=== PATIENT | male | born 1985 | race Caucasian/White ===

== ENCOUNTER 2023-09-05 17:19 | Emergency (ER) | payer OTHER, SELFPAY ==
--- NOTE | ~2023-09-05 | XR_ITS ---
EXAMINATION: XR wrist LT min 3V DATE: 09/05/2023 17:48 INDICATION: Left thumb injury and pain. TECHNIQUE: 4 views of left wrist were obtained. COMPARISON: None. FINDINGS: Bone alignment is normal. No fracture. Joint spaces are normal. IMPRESSION: 1. Normal left wrist. Reviewed, dictated and finalized at location E. IMPRESSION: 1. Normal left wrist.
[2023-09-05 17:33] VITALS: BP 140/102; PULSE 105; RESP 16; TEMP 37.5; O2SAT 98
[2023-09-05 17:34] VITALS: BP 140/102; PULSE 105; RESP 16; TEMP 37.5; O2SAT 98
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
== END 2023-09-05 18:10 | disposition home or self-care (01) ==
PROVIDERS: Emergency Provider Nurse Practitioner Family; PCP Nurse Practitioner
DX: S63.502A Unspecified sprain of left wrist, initial encounter (principal); Z79.899 Other long term (current) drug therapy; V89.2XXA Person injured in unspecified motor-vehicle accident, traffic, initial encounter
CPT/HCPCS: 73110; 99213; G0463

== ENCOUNTER 2023-09-27 11:48 | Emergency (ER) | payer OTHER, MEDICARE, MEDICAID, SELFPAY ==
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
[2023-09-27 12:02] VITALS: BP 140/100; PULSE 99; RESP 16; TEMP 36.6; O2SAT 99
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
[2023-09-27] MEDS: IBUPROFEN 600 MG TABLET PO (13:56)
== END 2023-09-27 14:00 | disposition home or self-care (01) ==
PROVIDERS: Emergency Provider Emergency Medicine; PCP Nurse Practitioner
DX: S52.515A Nondisplaced fracture of left radial styloid process, initial encounter for closed fracture (principal); V49.50XA Passenger injured in collision with unspecified motor vehicles in traffic accident, initial encounter
CPT/HCPCS: 29125; 73110; 99284; A9270

== ENCOUNTER 2023-11-18 12:30 | Outpatient (RCR) | payer MEDICARE, SELFPAY ==
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
--- NOTE | 2023-11-08 13:21 | OPREHPOC ---
Outpatient Therapy Plan of Care This is a Multidisciplinary Plan of Care that may contain components documented by all disciplines (PT, OT, and ST.) OT Problem 1 OT Problem #1 Knowledge Deficit OT Goal 1 Goal 1. Patient to be independent with instructed materials. Target Visit 8 OT Problem 2 OT Problem #2 Pain OT Goal 1 Goal 1. Patient to be independent with non-medication pain mgmt: - ROM - heat/ice Target Visit 8 OT Problem 3 OT Problem #3 Impaired Range of Motion OT Goal 1 Goal 1. Patient to increase active ROM of the left UE: - supination to 75 - wrist RD to 15 Target Visit 8 OT Problem 4 OT Problem #4 Impaired Strength OT Goal 1 Goal 1. Patient to be able to complete forearm and wrist strengthening with 2 lb. free weight x20 reps. Target Visit 8
--- NOTE | 2023-11-28 08:54 | PCOTNOTE ---
Late note for appointment yesterday, 11/27: Patient did not show up for scheduled appointment this date. Did not answer when called.
--- NOTE | 2023-12-04 13:00 | OTOPDC ---
Assessment and note entered by Harish Flores, ADELFO/Jenn, CHT Discharge Notification 12/04/23 OT Clinical Summary Patient referred to OT with dx of radial styloid fx. He attended 3 appointments and no showed the last 3 appointments. Discharging today due to poor attendance. We were able to contact him today and he reports his wrist feels fine and doesn't see the need to return for more therapy.
== END 2023-12-04 14:27 | disposition home or self-care (01) ==
LOC: ANHOT 12:30
PROVIDERS: PCP Nurse Practitioner; Visit Provider Orthopaedic Surgery
DX: S52.513D Displaced fracture of unspecified radial styloid process, subsequent encounter for closed fracture with routine healing (principal)
CPT/HCPCS: 97018; 97110; 97140; 97165; 99199

== ENCOUNTER 2024-04-15 09:38 | Emergency (ER) | payer MEDICARE, SELFPAY ==
[2024-04-15 09:42] VITALS: BP 150/90; PULSE 100; RESP 18; O2SAT 100
[2024-04-15 09:52] VITALS: TEMP 36.7
[2024-04-15] MEDS: LORazepam (*CRX) 1 MG TABLET PO (11:15)
--- NOTE | 2024-04-15 11:15 | ED.ANXIETY ---
HPI - Anxiety General Chief Complaint: Anxiety Stated Complaint: difficulty sleeping, panic attacks Time Seen by Provider: 04/15/24 10:20 History of Present Illness HPI narrative: 31-year-old male present to the emergency department for evaluation of increased anxiety. Patient reports that his mother recently on 03/24. Patient states he initially thought he was tolerating the passing of his mother but reports over the last few days he has had increased anxiety and decreased ability to sleep. Patient denies any suicidal homicidal ideation. Patient denies any thoughts of self-harm. Patient denies any alcohol intake and denies any THC intake. Patient declined any medical workup at this time but does prefer some medications to help with his anxiety. Patient was tearful during the examination. Related Data Home Medications Medication Instructions Recorded Confirmed buprenorphine 4 mg-naloxone 1 mg 1 film buccal BID 09/19/23 11/06/23 sublingual film (Suboxone) buspirone 7.5 mg tablet 7.5 mg PO BID 09/19/23 11/06/23 clindamycin phosphate 1 % topical 1 applic topical BID 09/19/23 11/06/23 solution clonazepam 0.5 mg tablet 0.5 - 1 mg PO BID PRN 09/19/23 11/06/23 hydroxyzine pamoate 50 mg capsule 50 - 100 mg PO QHS PRN 09/19/23 11/06/23 (Vistaril) olanzapine 5 mg tablet 5 mg PO QHS PRN 09/19/23 11/06/23 oxcarbazepine 300 mg tablet 300 mg PO BID 09/19/23 11/06/23 (Trileptal) phentermine 37.5 mg capsule 37.5 mg PO DAILY 09/19/23 11/06/23 pregabalin 150 mg capsule 150 mg PO QID 09/19/23 11/06/23 quetiapine 150 mg tablet,extended 150 mg PO DAILY 09/19/23 11/06/23 release 24 hr quetiapine 400 mg tablet 400 mg PO QHS 09/19/23 11/06/23 sildenafil 50 mg tablet 50 mg PO DAILY PRN 09/19/23 11/06/23 testosterone cypionate 200 mg/mL 200 mg IM WEEKLY 09/19/23 11/06/23 intramuscular oil vilazodone 40 mg tablet 40 mg PO DAILY 09/19/23 11/06/23 Allergies Allergy/AdvReac Type Severity Reaction Status Date / Time No Known Drug Allergies Allergy Unknown Unknown Verified 04/15/24 09:46 Review of Systems Review of Systems: All systems reviewed & are unremarkable except as noted in HPI and below PMFSH Past Medical History Medical History Anxiety Depression Opioid use disorder Substance abuse Family History Family History Father H/O gastric bypass Mother Schizophrenia Sibling No problems noted. Social History Social History Smoking status: Never smoker Alcohol intake: never Substance use: former Substance use type: does not use Last use: 4 years clean Occupation/Education: other Additional occupation/education comments: disabled Gender identity (if verbalized by the patient): Male Exam Narrative: APPEARANCE: Well appearing, no pain, no distress, well-nourished. HEAD: normocephalic, atraumatic. EYES: PERRLA/EOMI, conjunctivae clear. NOSE: Normal no drainage EARS:TMS clear with good light reflex. THROAT: Pharynx clear, no exudate. NECK: Supple. No adenopathy, no masses. RESPIRATORY: Airway patent, respirations nonlabored. Clear to auscultation bilaterally, no rales, rhonchi, wheezing. CARDIOVASCULAR: Regular rate and rhythm without murmurs rubs or gallops. ABDOMINAL: Soft, nontender, nondistended, normal bowel sounds MUSCULOSKELETAL: Moves all extremities. Strength/ROM intact, No edema, No calf tenderness. NEURO: Alert. Cranial nerves II through XII intact. Good gait. Good coordination SKIN: Warm, dry. Normal Color PSYCHIATRIC: Tearful affect Course Course Emergency Course: Patient felt improved with treatment in the emergency department. Vital Signs Vital signs: Vital Signs Pulse Rate 100 04/15/24 09:42 Respiratory Rate 18 04/15/24 09:42 Blood Pressure 150/90 H 04/15/24 09:42 Pulse
[2024-04-15 12:35] VITALS: BP 156/100; PULSE 95; RESP 18; O2SAT 98
== END 2024-04-15 13:10 | disposition home or self-care (01) ==
PROVIDERS: Emergency Provider Emergency Medicine; PCP Nurse Practitioner
DX: F41.9 Anxiety disorder, unspecified (principal); F41.8 Other specified anxiety disorders; F11.90 Opioid use, unspecified, uncomplicated
CPT/HCPCS: 99283; A9270

== ENCOUNTER 2024-04-25 09:44 | Emergency (ER) | payer MEDICARE, SELFPAY ==
[2024-04-25] VITALS (11 sets, daily range): BP systolic 107–142; BP diastolic 76–96; PULSE 73–98; RESP 10–20; TEMP 36.6; O2SAT 93–100
--- NOTE | 2024-04-25 10:21 | ED.EXTPRO ---
HPI - Extremity Problem General Chief complaint: Extremity Problem,Nontraumatic Stated complaint: edema in both legs Time Seen by Provider: 04/25/24 10:09 History of Present Illness HPI Narrative: Patient is a 39-year-old male who presents to the emergency department this complaining of bilateral lower extremity edema. Patient states that his significant other noticed them approximately 1 week ago, however, he did not really notice the swelling until today while he was in the shower. Patient denies any history of CHF or any previous history of lower extremity edema. Denies any significant past medical history and denies any history of cardiovascular disease including congestive heart failure. Patient states that he does not believe that he spends a lot of time on his feet, and does not work as he is disabled. He has ground denies any chest pain or shortness of breath. Denies any additional symptoms including nausea, vomiting, abdominal pain, fevers or chills. No additional symptoms or concerns at this time. Related Data Home Medications Medication Instructions Recorded Confirmed buprenorphine 4 mg-naloxone 1 mg 1 film buccal BID 09/19/23 11/06/23 sublingual film (Suboxone) buspirone 7.5 mg tablet 7.5 mg PO BID 09/19/23 11/06/23 clindamycin phosphate 1 % topical 1 applic topical BID 09/19/23 11/06/23 solution clonazepam 0.5 mg tablet 0.5 - 1 mg PO BID PRN 09/19/23 11/06/23 hydroxyzine pamoate 50 mg capsule 50 - 100 mg PO QHS PRN 09/19/23 11/06/23 (Vistaril) olanzapine 5 mg tablet 5 mg PO QHS PRN 09/19/23 11/06/23 oxcarbazepine 300 mg tablet 300 mg PO BID 09/19/23 11/06/23 (Trileptal) phentermine 37.5 mg capsule 37.5 mg PO DAILY 09/19/23 11/06/23 pregabalin 150 mg capsule 150 mg PO QID 09/19/23 11/06/23 quetiapine 150 mg tablet,extended 150 mg PO DAILY 09/19/23 11/06/23 release 24 hr quetiapine 400 mg tablet 400 mg PO QHS 09/19/23 11/06/23 sildenafil 50 mg tablet 50 mg PO DAILY PRN 09/19/23 11/06/23 testosterone cypionate 200 mg/mL 200 mg IM WEEKLY 09/19/23 11/06/23 intramuscular oil vilazodone 40 mg tablet 40 mg PO DAILY 09/19/23 11/06/23 Allergies Allergy/AdvReac Type Severity Reaction Status Date / Time No Known Drug Allergies Allergy Unknown Unknown Verified 04/15/24 09:46 Review of Systems Review of Systems: All systems are reviewed and are negative unless stated otherwise in the HPI. [facility] Past Medical History Medical History Anxiety Depression Opioid use disorder Substance abuse Family History Family History Father H/O gastric bypass Mother Schizophrenia Sibling No problems noted. Social History Social History Smoking status: Never smoker Alcohol intake: never Substance use: former Substance use type: does not use Last use: 4 years clean Occupation/Education: other Additional occupation/education comments: disabled Gender identity (if verbalized by the patient): Male Exam Narrative: General: Alert, awake, afebrile, in no acute distress. Neck: Trachea midline, no JVD, no lymphadenopathy. Cardiovascular: Regular rate and rhythm, no murmurs, rubs or gallops, bilateral lower extremity 1+ pitting edema. Respiratory: Clear to auscultation bilaterally, no tachypnea, no wheezing, no rhonchi, no rubs, no respiratory distress. Abdomen: Soft, nontender, nondistended, no rebound, no guarding, no peritoneal signs. Musculoskeletal: No joint swelling or deformity, normal muscle tone. Skin: No rashes or petechia, no signs of infection. Neurological: Alert and oriented to person, place, and time. Follows all commands. No focal deficits, speech is clear and fluent. Course Vital Signs Vital signs: Vital Signs Temperature 97.8 F 04/25/24 09:51 Pulse Rate 98 04/25/24 09:51 Respirat
[2024-04-25 10:33] LABS: Basophils Absolute Auto 0.1 K/mm3 (0.0-0.1); Basophils Percent Auto 0.7 % (0.2-1.2); Eosinophils Absolute Auto 0.3 K/mm3 (0-0.3); Eosinophils Percent Auto 3.2 % (0-4.4); Hematocrit 44.1 % (42.0-52.0); Hemoglobin 14.7 g/dL (14.0-18.0); Immature Granulocyte Absolute 0.06 K/mm3 (0.00-0.031); Immature Granulocyte Percent A 0.7 % (0-0.5); Lymphocytes Absolute Auto 1.54 K/mm3 (0.9-3.2); Lymphocytes Percent Auto 18.8 % (18.3-44.2); Mean Corpuscular HGB Conc 33.3 g/dl (32-36); Mean Corpuscular Hemoglobin 29.9 pg (26-34); Mean Corpuscular Volume 89.6 fl (80-100); Mean Platelet Volume 8.2 fl (7.4-10.4); Monocytes Absolute Auto 0.7 K/mm3 (0.1-0.6); Monocytes Percent Auto 8.3 % (2.6-8.5); Neutrophils Absolute Auto 5.6 K/mm3 (1.3-6.7); Neutrophils Percent Auto 68.3 % (45.5-73.1); Platelet Count Result 240 k/mm3 (150-375); Red Blood Count 4.92 M/mm3 (4.6-6.20); White Blood Count 8.2 K/mm3 (4.5-10.0)
[2024-04-25 10:43] LABS: Alanine Aminotransferase 53 U/L (6-50); Albumin Level 4.3 g/dL (3.5-5.1); Alkaline Phosphatase 81 U/L (38-126); Anion Gap 7 mmol/L (4-12); Aspartate Amino Transferase 46 U/L (17-59); Bilirubin,Total 0.5 mg/dL (0.2-1.3); Blood Urea Nitrogen 11 mg/dL (9-20); Calcium 8.9 mg/dL (8.4-10.2); Carbon Dioxide 28 mmol/L (22-30); Chloride 105 mmol/L (98-107); Estimated CRCL calculation 120 ml/min; Estimated Glomerular Filt Rate > 60; Glucose 96 mg/dL (65-110); Potassium 3.9 mmol/L (3.4-5.0); Sodium 140 mmol/L (137-145)
[2024-04-25 10:51] LABS: NT Pro B Type Natriuretic Pept < 20 pg/mL (19.9-100)
== END 2024-04-25 11:14 | disposition home or self-care (01) ==
PROVIDERS: Emergency Provider Emergency Medicine; PCP Nurse Practitioner
DX: R60.0 Localized edema (principal); F41.9 Anxiety disorder, unspecified; F32.A Depression, unspecified; Z79.899 Other long term (current) drug therapy
CPT/HCPCS: 36415; 80053; 83880; 85025; 99283

== ENCOUNTER 2024-07-14 11:48 | Emergency (ER) | payer MEDICARE, SELFPAY ==
[2024-07-14 11:51] VITALS: BP 135/81; PULSE 90; RESP 18; TEMP 36.6; O2SAT 97
--- NOTE | 2024-07-14 14:42 | ED.GENADULT ---
HPI - General Adult General Chief complaint: Urogenital-Male Stated complaint: having trouble urinating and going #2 Time Seen by Provider: 07/14/24 13:36 History of Present Illness HPI narrative: This is a 39-year-old male on Suboxone presenting with constipation. He has been having this problem for several months. He he does not take consistent stool softeners and takes 4 Colace whenever he feels like he is constipated. He used an enema last night with some relief. When he becomes constipated he starts having difficulty initiating a urine stream. Patient denies fevers chills nausea vomiting, abdominal pain or obstipation. Related Data Home Medications Medication Instructions Recorded Confirmed buprenorphine 4 mg-naloxone 1 mg 1 film buccal BID 09/19/23 11/06/23 sublingual film (Suboxone) buspirone 7.5 mg tablet 7.5 mg PO BID 09/19/23 11/06/23 clindamycin phosphate 1 % topical 1 applic topical BID 09/19/23 11/06/23 solution clonazepam 0.5 mg tablet 0.5 - 1 mg PO BID PRN 09/19/23 11/06/23 hydroxyzine pamoate 50 mg capsule 50 - 100 mg PO QHS PRN 09/19/23 11/06/23 (Vistaril) olanzapine 5 mg tablet 5 mg PO QHS PRN 09/19/23 11/06/23 oxcarbazepine 300 mg tablet 300 mg PO BID 09/19/23 11/06/23 (Trileptal) phentermine 37.5 mg capsule 37.5 mg PO DAILY 09/19/23 11/06/23 pregabalin 150 mg capsule 150 mg PO QID 09/19/23 11/06/23 quetiapine 150 mg tablet,extended 150 mg PO DAILY 09/19/23 11/06/23 release 24 hr quetiapine 400 mg tablet 400 mg PO QHS 09/19/23 11/06/23 sildenafil 50 mg tablet 50 mg PO DAILY PRN 09/19/23 11/06/23 testosterone cypionate 200 mg/mL 200 mg IM WEEKLY 09/19/23 11/06/23 intramuscular oil vilazodone 40 mg tablet 40 mg PO DAILY 09/19/23 11/06/23 Allergies Allergy/AdvReac Type Severity Reaction Status Date / Time No Known Drug Allergies Allergy Unknown Unknown Verified 07/14/24 11:48 [facility] Past Medical History Medical History (Updated 07/14/24 @ 14:45 by Karlos Pérez MD) Anxiety Depression Hyperlipidemia, unspecified Opioid use disorder Sleep disorder breathing Substance abuse Family History Family History Father H/O gastric bypass Mother Schizophrenia Sibling No problems noted. Social History Social History Smoking status: Never smoker Alcohol intake: never Substance use: former Substance use type: does not use Last use: 4 years clean Occupation/Education: other Additional occupation/education comments: disabled Gender identity (if verbalized by the patient): Male Exam Narrative: APPEARANCE: No apparent distress. Head: atraumatic. EYES: EOMI, NOSE: Atraumatic NECK: Trachea midline RESPIRATORY: No increased rate of breathing clear to auscultation CARDIOVASCULAR: RRR, ABDOMINAL: Distended, nontender, no guarding rebound MUSCULOSKELETAl: No obvious deformities NEURO: Alert. Moving 4/4 extremities SKIN:: Warm, dry. Normal color PSYCHIATRIC: Normal affect Course Vital Signs Vital signs: Vital Signs Temperature 97.8 F 07/14/24 11:51 Pulse Rate 90 07/14/24 11:51 Respiratory Rate 18 07/14/24 11:51 Blood Pressure 135/81 07/14/24 11:51 Pulse Oximetry 97 07/14/24 11:51 Temperature 97.8 F 07/14/24 11:51 Pulse Rate 90 07/14/24 11:51 Respiratory Rate 18 07/14/24 11:51 Blood Pressure 135/81 07/14/24 11:51 Pulse Oximetry 97 07/14/24 11:51 Medical Decision Making MDM Narrative Medical decision making narrative: -Course: 39-year-old male with chronic opioid use presenting with constipation. Given methylnaltrexone in the emergency department. Prescribed a bowel regimen and given education on how to ameliorate constipation. Discharged with return precautions. Patient has some difficulty initiating urinary stream that this should improve once his constipation resolves
[2024-07-14] MEDS: METHYLNALTREXONE 12 MG/0.6 ML VIAL SUB-Q (14:45)
[2024-07-14 14:51] VITALS: BP 142/81; PULSE 87; RESP 16; O2SAT 99
== END 2024-07-14 14:52 | disposition home or self-care (01) ==
PROVIDERS: Emergency Provider Emergency Medicine; PCP Nurse Practitioner
DX: K59.03 Drug induced constipation (principal); T40.2X5A Adverse effect of other opioids, initial encounter; E78.5 Hyperlipidemia, unspecified; G47.30 Sleep apnea, unspecified; F41.9 Anxiety disorder, unspecified; F32.A Depression, unspecified; Z79.899 Other long term (current) drug therapy
CPT/HCPCS: 96372; 99283; J2212

== ENCOUNTER 2025-01-08 12:51 | Outpatient (CLI) | payer MEDICARE, SELFPAY ==
--- NOTE | ~2025-01-08 | US_ITS ---
EXAMINATION TYPE: US breast RT limited COMPARISON: NONE REASON FOR STUDY: right breast pain possible mass TECHNIQUE: Targeted sonographic evaluation of the right breast was performed. INTERPRETATION: Scanning of the right breast at the area of pain at the 8:00 position of the right breast demonstrate s no solid or cystic abnormality. No sonographic correlate seen at the area of clinical concern. IMPRESSION: No significant abnormality seen at the area of clinical concern. Consider follow-up diagnostic mammog luz as indicated. BI-RADS CATEGORY: BI-RADS 1: Normal Reviewed, dictated and finalized at location . IVER BULK SYSTEM IMPRESSION: No significant abnormality seen at the area of clinical concern. Consider follo w-up diagnostic mammogram as indicated. BI-RADS CATEGORY: BI-RADS 1: Normal
--- OUTSIDE RECORDS SUMMARY | 2025-01-08 12:58 | XMS_ITS | Encounter Summary ---
Author Organization [facility] Address [address] [place] [address] Phone Care Team Providers Care Account Executive Key Accounts Name Role Phone Heriberto Ramos MD Primary Care Provider [phone] Heriberto Ramos MD Primary Care Provider +[phone]- [phone] Nayan Copeland APRN, PUBLIC RELATIONS Unavailable + [phone] Reason for Visit * Reason Comments Medication Refill Encounter Details Date Type Department Care Team (Late st Contact Info) Description 09/27/2020 Refill [facility] #2 [place] [address] Heriberto Ramos MD #[address] [address] Medication Refill Social History Tobacco Use Types Packs/Day Years Used Date Smoking Tobacco: Never Smokeless Tobacco: Never Alcohol Use Standard Drinks/Week Comments Not Currently 0 (1 standard drink = 0.6 oz pur e alcohol) EVERY BLUE ACUÑA PHQ-2 Answer Date Recorded PHQ-2 Score 0 07/29/2019 Sex and Gender Information Value Date Recorded Sex Assigned at Not on file Legal Sex Male 10:39 PM CDT Gender Identity Not on file Sexual Orientation Not on file COVID-19 Exposure Response Date Recorded In the last month, have you been in contact with someone who was confirmed or suspected to have Coronavirus / COVID-19? No / Unsure 09/05/2020 9:18 AM CDT documented as of this encounter Miscellaneous Notes * Telephone Encounter - Maia Lee RN - 09/28/2020 2:23 PM CDT FARIBA: 05-19-2020; depression, anxiety, non compliance, terminal computer operator use of antipsychotic medication, narcotic use Next OV: none documented in this encounter Plan of Treatment Not on file documented as of this encounter Visit Diagnoses Diagnosis Anxiety Anxiety state, unspecified documented in this encounter Additional Health Concerns Assessment Noted Time PHQ-9 Depression Total Score: 0 04/10/20 3:48 PM CDT documented as of this encounter Care Teams Account Executive Key Accounts Relationship Specialty Start Date End Date Heriberto Ramos MD #[address] [address] PCP - General Family Medicine 12/25/18 11/10/20 Heriberto Ramos MD #[address] [address] PCP - General Primary Care 11/24/24 Nayan Copeland APRN, KADEEM [address]2 [place] [address] Nurse Practitioner Advanced Practice Nurse 11/24/24 documented as of this encounter
--- OUTSIDE RECORDS SUMMARY | 2025-01-08 12:58 | XMS_ITS | Encounter Summary ---
Author Organization [facility] Address [address] [place] [address] Phone Care Team Providers Care Payroll Bookkeeper Name Role Phone Heriberto Ramos MD Primary Care Provider [phone] Heriberto Ramos MD Primary Care Provider [phone] Nayan Copeland APRN, ELECTRICIAN CONTROL EQUIPMENT Unavailable + [phone] Reason for Visit * Reason Onset Date Comments Medication Refill Medication Refill 10/13/2020 clonazepam Encounter Details Date Type Department Care Team (Late st Contact Info) Description 10/11/2020 Refill [facility] - [facility] [address]2 [place] [address] Heriberto Ramos MD #[address] [address] Medication Refill; Medication Refill (clonazepam ) Social History Tobacco Use Types Packs/Day Years [...] have Coronavirus / COVID-19? No / Unsure 10/14/2020 9:38 AM TEASEL GIG OPERATOR documented as of this encounter Miscellaneous Notes * Telephone Encounter - Juliana Griffith RN - 10/13/2020 10:51 AM CST Images from the original note were not included. Karina Moyer 1 minute ago (10:44 AM) Patient states only gets a 15 day supply ?? Patient takes 0.5 mg 2 daily ?? last filled 09/29/20 - ( 15 day supply) ?? repended Medication failed the protocol, provider to review and approve the medication order if appropriate. Requested Prescriptions Pending Prescriptions Disp Refills clonazePAM (KlonoPIN) 0.5 MG Tablet 30 Tab 0 Not Delegated - Psychiatry: Anxiolytics - clonazepam Failed - 10/13/2020 10:45 AM Failed - This refill cannot be delegated Passed - Valid encounter within last 6 months Past Office Visits Recent Outpatient Visits 4 months ago Depression, unspecified depression type [facility] - Demetrio Santos APN, CNP 1 year ago Anxiety [facility] - Heriberto Whitaker MD 1 year ago Insomnia, unspecified type [facility] - Demetrio Santos APN, CNP 1 year ago Sprain of right knee, unspecified ligament, initial encounter [facility] - Demetrio Santos APN, CNP 1 year ago Overweight (BMI 25.0-29.9) [facility] - Heriberto Whitaker MD Upcoming Appointments ED TECH - Recent and Past Visits Recent Visits Date Type Provider Dept 05/19/20 Office Visit Demetrio Domínguez APN, CNP [facility] 09/21/19 Office Visit Heriberto Ramos MD [facility] 07/31/19 Office Visit Demetrio Domínguez APN, CNP [facility] [place] [place] Showing recent visits within past 460 days with a meds authorizing provider and meeting all other requirements Future Appointments No visits were found meeting these conditions. Showing future appointments within next 90 days with a meds authorizing provider and meeting all other requirements Refused Prescriptions Disp Refills clonazePAM (KlonoPIN) 0.5 MG Tablet [Pharmacy Med Name: CLONAZEPAM 0.5 MG TABLET] 30 Tab 0 Sig: TAKE 1 TABLET BY MOUTH TWICE A DAY NEEDED FOR ANXIETY Not Delegated - Psychiatry: Anxiolytics - clonazepam Failed - 10/13/2020 10:45 AM Failed - This refill cannot be delegated Passed - Valid encounter within last 6 months Past Office Visits Recent Outpatient Visits 4 months ago Depression, unspecified depression type [facility] [place] 1 [facility] [place] [facility] Insomnia, unspecified type [facility] Demetrio Santos APN, CNP 1 year ago Sprain of right knee, unspecified ligament, initial [facility] 1 year ago Overweight (BMI 25.0-29.9) [facility] Upcoming Appointments ED TECH - Recent and Past Visits Recent Visits Date Type Provider Dept 05/19/20 Office Visit Demetrio Domínguez APN, CNP [facility] 09/21/19 Office Visit Heriberto Ramos MD [facility] 07/31/19 Office Visit Demetrio Domínguez APN, CNP [facility] Showing recent visits within past 460 days with a meds authorizing provider and meeting all other requirements Future Appointments No visits were found meeting these conditions. Showing future appointments within next 90 days with a meds authorizing provider and meeting all other requirements EL GIG OPERATOR * Telephone Encounter - Karina Moyer - 10/13/2020 10:42 AM CST Patient states only gets a 15 day supply Patient takes 0.5 mg 2 daily last filled 09/29/20 - ( 15 day supply) repended EL GIG OPERATOR documented in this encounter Plan of Treatment Not on file documented as of this encounter Visit Diagnoses Diagnosis Anxiety Anxiety state, unspecified documented in this encounter Additional Health Concerns Assessment Noted Time PHQ-9 Depression Total Score: 0 04/10/20 3:48 PM CDT documented as of this encounter Care Teams Payroll Bookkeeper Relationship Specialty Start Date End Date Heriberto Ramos MD #[address] [address] PCP - General Family Medicine 12/25/18 11/10/20 Heriberto Ramos MD #[address] [address] PCP - General Primary Care 11/24/24 Nayan Copeland APRN, ELECTRICIAN CONTROL EQUIPMENT [address] [place] [address] Nurse Practitioner Advanced Practice Nurse 11/24/24 documented as of this encounter
--- OUTSIDE RECORDS SUMMARY | 2025-01-08 12:58 | XMS_ITS | Encounter Summary ---
Author Organization [facility] Address [address] [place] [address] Phone Care Team Providers Care Spanish Speaking Babysitter Name Role Phone Heriberto Ramos MD Primary Care Provider [phone] Heriberto Ramos MD Primary Care Provider [phone] Nayan Copeland APRN, PRODUCTION ASSEMBLER Unavailable + [phone] Reason for Visit * Reason Comments Medication Refill Encounter Details Date Type Department Care Team (Late st Contact Info) Description 06/17/2020 Refill [facility] #2 [place] [address] Heriberto Ramos MD #[address] [address] Medication Refill Social History Tobacco Use Types [...] have Coronavirus / COVID-19? No / Unsure 05/19/2020 2:33 PM CDT documented as of this encounter Miscellaneous Notes * Telephone Encounter - Rupinder Flores RN - 06/17/2020 1:53 PM CDT Requested Prescriptions Pending Prescriptions Disp Refills clonazePAM (KLONOPIN) 0.5 MG Tablet [Pharmacy Med Name: CLONAZEPAM 0.5 MG TABLET] 30 Tab 0 Sig: Take 1 Tab by mouth 2 times daily as needed for Anxiety. Not Delegated - Psychiatry: Anxiolytics - clonazepam Failed - 06/17/2020 7:53 AM Failed - This refill cannot be delegated Passed - Valid encounter within last 6 months Past Office Visits Recent Outpatient Visits 4 weeks ago Depression, unspecified depression type [facility] Demetrio Domínguez APN, CNP [address] [facility] Heriberto Ramos MD 10 months ago Insomnia, unspecified type [facility] Demetrio Domínguez APN, CNP 1 year ago Sprain of right knee, unspecified ligament, initial encounter [facility] Demetrio Domínguez APN, CNP 1 year ago Overweight (BMI 25.0-29.9) [facility] Upcoming [facility]ointments Future Appointments In 2 months Heriberto Ramos MD [facility] documented in this encounter Plan of Treatment Not on file documented as of this encounter Visit Diagnoses Diagnosis Anxiety Anxiety state, unspecified documented in this encounter Additional Health Concerns Assessment Noted Time PHQ-9 Depression Total Score: 0 04/10/20 3:48 PM CDT documented as of this encounter Care Teams Spanish Speaking Babysitter Relationship Specialty Start Date End Date Heriberto Ramos MD #[address] [address] PCP - General Family Medicine 12/25/18 11/10/20 Heriberto Ramos MD #[address] [address] PCP - General Primary Care 11/24/24 Nayan Copeland APRN, PRODUCTION ASSEMBLER [address] [place] [address] Nurse Practitioner Advanced Practice Nurse 11/24/24 documented as of this encounter
--- OUTSIDE RECORDS SUMMARY | 2025-01-08 12:58 | XMS_ITS | Encounter Summary ---
Author Organization [facility] Address [address] [place] [address] Phone Care Team Providers Care Rear Load Truck Driver Name Role Phone Heriberto Ramos MD Primary Care Provider [phone] Heriberto Ramos MD Primary Care Provider [phone] Nayan Copeland BUILDING ESTIMATOR, RUG RENOVATOR Unavailable + [phone] Reason for Visit * Reason Comments Medication Refill Encounter Details Date Type Department Care Team (Late st Contact Info) Description 06/30/2020 Refill [facility] - [facility] #2 [place] [address] Heriberto Ramos MD #[address] [address] Medication Refill Social History Tobacco Use Types [...] on file Sexual Orientation Not on file documented as of this encounter Miscellaneous Notes * Telephone Encounter - Sugar Garcia RN - 07/04/2020 11:19 AM CDT Medication failed the protocol, routing to provider to review and approve the medication order. Requested Prescriptions Pending Prescriptions Disp Refills clonazePAM (KLONOPIN) 0.5 MG Tablet [Pharmacy Med Name: CLONAZEPAM 0.5 MG TABLET] 30 Tab 0 Sig: TAKE 1 TABLET BY MOUTH TWICE A DAY NEEDED FOR ANXIETY. Not Delegated - Psychiatry: Anxiolytics - clonazepam Failed - 06/30/2020 11:46 AM Failed - This refill cannot be delegated Passed - Valid encounter within last 6 months Past Office Visits Recent Outpatient Visits 1 month ago Depression, unspecified depression type [facility] Demetrio Domínguez APN, CNP 9 months ago Anxiety [facility] Heriberto Ramos MD 11 months ago Insomnia, unspecified type [facility] Demetrio Domínguez APN, CNP 1 year ago Sprain of right knee, unspecified ligament, initial encounter [facility] Demetrio Domínguez APN, CNP 1 year ago Overweight (BMI 25.0-29.9) [facility] Heriberto Ramos MD Upcoming Appointments Future Appointments In 1 month Heriberto Ramos MD [facility] PHYSICIAN [facility], [facility] TUBE INSPECTOR - Recent and Past Visits Recent Visits Date Type Provider Dept 05/19/20 Office Visit Demetrio Domínguez APN, [facility] 09/21/19 Office Visit Heriberto Ramos MD [facility] 07/31/19 Office Visit Demetrio Domínguez APN, RUG RENOVATOR [facility] 04/21/19 Office Visit Demetrio Domínguez APN, KADEEM [facility] 04/10/19 Office Visit Heriberto Ramos MD [facility] Showing recent visits within past 460 days with a meds authorizing provider and meeting all other requirements Future Appointments Date Type Provider Dept 08/25/20 Appointment Heriberto Ramos MD [facility] Showing future appointments within next 90 days with a meds authorizing provider and meeting all other requirements documented in this encounter Plan of Treatment Not on file documented as of this encounter Visit Diagnoses Diagnosis Anxiety Anxiety state, unspecified documented in this encounter Additional Health Concerns Assessment Noted Time PHQ-9 Depression Total Score: 0 04/10/20 3:48 PM CDT documented as of this encounter Care Teams Rear Load Truck Driver Relationship Specialty Start Date End Date Heriberto Ramos MD #[address] [address] PCP - General Family Medicine 12/25/18 11/10/20 Heriberto Ramos MD #[address] [address] PCP - General Primary Care 11/24/24 Nayan Copeland APRN, RUG RENOVATOR #2 [place] [address] Nurse Practitioner Advanced Practice Nurse 11/24/24 documented as of this encounter
--- OUTSIDE RECORDS SUMMARY | 2025-01-08 12:58 | XMS_ITS | CONTINUITY OF CARE DOCUMENT ---
Author Name boston mead Address Unknown Organization [facility] Address [address] [place] [address] Phone [phone] Care Team Providers Care Auto Damage Appraiser Name Role Phone Logan UNGER, Jose Unavailable [phone] NELLY UNGER, SHEREE Unavailable NELLY UNGER, SHEREE Unavailable INSURANCE PROVIDERS Payer name Policy type / Coverage type [place] [employer] party ID [place]ANE[place] MEDICAID Medicaid [id number]
--- OUTSIDE RECORDS SUMMARY | 2025-01-08 12:58 | XMS_ITS | Encounter Summary ---
Author Organization [facility] Address [address] [place] [address] Phone Care Team Providers Care Customer Solutions Teammate Name Role Phone Heriberto Ramos MD Primary Care Provider [phone] Heriberto Ramos MD Primary Care Provider [phone] Nayan Copeland APRN, RECORD CUTTER Unavailable + [phone] Reason for Visit * Reason Comments Medication Refill Encounter Details Date Type Department Care Team (Late st Contact Info) Description 09/21/2020 Refill [facility] - [facility] #2 [place] [address] Heriberto Ramos MD #[address] [address] Medication Refill Social History Tobacco Use Types [...] encounter Miscellaneous Notes * Telephone Encounter - Krystal Copeland RN - 09/23/2020 8:46 AM CDT Medication failed the protocol,provider to review and approve the medication order. Requested Prescriptions Pending Prescriptions Disp Refills traMADol (ULTRAM) 50 MG Tablet [Pharmacy Med Name: TRAMADOL 50MG TABLETS] 60 Tab 0 Sig: TAKE 1 TABLET BY MOUTH TWICE DAILY Not Delegated - Analgesics: Opioid Agonists Failed - 09/21/2020 2:57 PM Failed - This refill cannot be delegated Passed - Valid encounter within last 6 months Past Office Visits Recent Outpatient Visits 4 months ago Depression, unspecified depression type [facility] - Demetrio Santos APN, CNP 1 year ago Anxiety [facility] - Heriberto Whitaker MD 1 year ago Insomnia, unspecified type [facility] - Demetrio Santos APN, CNP 1 year ago Sprain of right knee, unspecified ligament, initial encounter [facility] 1 year ago Overweight (BMI 25.0-29.9) [facility] - Heriberto Whitaker MD Upcoming Appointments TERMITE CONTROL REPRESENTATIVE - Recent and Past Visits Recent Visits Date Type Provider Dept 05/19/20 Office Visit Demetrio Domínguez APN, CNP [facility] 09/21/19 [facility]uez APN, CNP [facility] [place] Showing recent visits within past 460 days with a meds authorizing provider and meeting all other requirements Future Appointments No visits were found meeting these conditions. Showing future appointments within next 90 days with a meds authorizing provider and meeting all other requirements documented in this encounter Plan of Treatment Not on file documented as of this encounter Visit Diagnoses Not on filedocumented in this encounter Additional Health Concerns Assessment Noted Time PHQ-9 Depression Total Score: 0 04/10/20 3:48 PM CDT documented as of this encounter Care Teams Customer Solutions Teammate Relationship Specialty Start Date End Date Heriberto Ramos MD #[address] [address] PCP - General Family Medicine 12/25/18 11/10/20 Heriberto Ramos MD #[address] [address] PCP - General Primary Care 11/24/24 Nayan Copeland APRN, RECORD CUTTER [address] [place] [address] Nurse Practitioner Advanced Practice Nurse 11/24/24 documented as of this encounter
--- OUTSIDE RECORDS SUMMARY | 2025-01-08 12:58 | XMS_ITS | Encounter Summary ---
Author Organization [facility] Address [address] [place] [address] Phone Care Team Providers Care Architecture Analyst Name Role Phone Heriberto Ramos MD Primary Care Provider [phone] Heriberto Ramos MD Primary Care Provider [phone] Nayan Copeland APRN, INPATIENT SERVICES DIRECTOR Unavailable + [phone] Reason for Visit * Reason Comments Medication Refill Encounter Details Date Type Department Care Team (Late st Contact Info) Description 04/28/2020 [facility]ill [facility] [address] [place] [address] Heriberto Ramos MD #[address] [address] Medication Refill Social History Tobacco Use Types [...] Telephone Encounter - Rupinder Flores RN - 04/28/2020 11:10 AM CDT Requested Prescriptions Pending Prescriptions Disp Refills QUEtiapine Fumarate (SEROQUEL) 50 MG Tablet [Pharmacy Med Name: QUETIAPINE 50MG TABLETS] 30 Tab 0 Sig: TAKE 1 TABLET BY MOUTH EVERY NIGHT AT BEDTIME Not Delegated - Psychiatry: Antipsychotics - Second Generation (Atypical) Failed - 04/28/2020 10:26 AM Failed - Valid encounter within last 6 months Past Office Visits Recent Outpatient Visits 7 months ago An[facility] Heriberto Ramos MD 9 months ago Insomnia, unspecified type [facility] Demetrio Domínguez APN, CNP 1 year ago Sprain of right knee, unspecified ligament, initial encounter [facility] Demetrio Oglesby APN, CNP 1 year ago Overweight (BMI 25.0-29.9) [facility] 1 year ago Insomnia, unspecified type [facility] MD Upcoming Appointments Failed - This refill cannot be delegated Failed - HBA1C in normal range and within 360 days No results found for: HGBA1C, GLYCO1 Passed - Last BP in normal range BP Readings from Last 1 Encounters: 09/21/19 122/64 Passed - WBC in normal range and within 360 days WBC Date Value Ref Range Status 07/12/2019 8.31 4.00 - 12.00 10(3)/mcL Final documented in this encounter Plan of Treatment Not on file documented as of this encounter Visit Diagnoses Diagnosis Depression, unspecified depression type documented in this encounter Additional Health Concerns Assessment Noted Time PHQ-9 Depression Total Score: 0 04/10/20 19 3:48 PM CDT documented as of this encounter Care Teams Architecture Analyst Relationship Specialty Start Date End Date Heriberto Ramos MD #[address] [address] PCP - General Family Medicine 12/25/18 11/10/20 Heriberto Ramos MD #[address] [address] PCP - General Primary Care 11/24/24 Nayan Copeland APRN, INPATIENT SERVICES DIRECTOR #2 [place] [address] Nurse Practitioner Advanced Practice Nurse 11/24/24 documented as of this encounter
--- OUTSIDE RECORDS SUMMARY | 2025-01-08 12:58 | XMS_ITS | Encounter Summary ---
Author Organization [facility] Address [address] [place] [address] Phone Care Team Providers Care Core Composer Feeder Name Role Phone Heriberto Ramos MD Primary Care Provider [phone] Heriberto Ramos MD Primary Care Provider [phone] Nayan Copeland APRN, PINION STAKER Unavailable + [phone] Reason for Visit * Reason Onset Date Comments Medication Refill Medication Refill 07/22/2020 Encounter Details Date Type Department Care Team (Late st Contact Info) Description 07/17/2020 Refill [facility] - [facility] #2 [place] [address] Heriberto Ramos MD #[address] [address] Medication Refill; Medication Refill Social History Tobacco Use Types [...] encounter Miscellaneous Notes * Telephone Encounter - Maryellen Motley RN - 07/18/2020 8:07 AM CDT Refill pended. See UDS results from 05/2020 documented in this encounter Plan of Treatment Not on file documented as of this encounter Visit Diagnoses Diagnosis Anxiety Anxiety state, unspecified documented in this encounter Additional Health Concerns Assessment Noted Time PHQ-9 Depression Total Score: 0 04/10/20 19 3:48 PM CDT documented as of this encounter Care Teams Core Composer Feeder Relationship Specialty Start Date End Date Heriberto Ramos MD #[address] [address] PCP - General Family Medicine 12/25/18 11/10/20 Heriberto Ramos MD #[address] [address] PCP - General Primary Care 11/24/24 Nayan Copeland APRN, PINION STAKER #2 [place] [address] Nurse Practitioner Advanced Practice Nurse 11/24/24 documented as of this encounter
--- OUTSIDE RECORDS SUMMARY | 2025-01-08 12:58 | XMS_ITS | Encounter Summary ---
Author Organization [facility] Address [address] [place] [address] Phone Care Team Providers Care Manager Social Responsibility Name Role Phone Heriberto Ramos MD Primary Care Provider [phone] Heriberto Ramos MD Primary Care Provider [phone] Nayan Copeland HAND TUBE BENDER, SOCIAL MEDIA STRATEGIST Unavailable + [phone] Reason for Visit * Reason Onset Date Comments Medication Refill 07/13/2020 Encounter Details Date Type Department Care Team (Late st Contact Info) Description 07/13/2020 Refill [facility] [address] [place] [address] Heriberto Ramos MD #[address] [address] Medication Refill Social History Tobacco Use Types [...] encounter Miscellaneous Notes * Telephone Encounter - Rikki Higgins RN - 07/14/2020 12:23 PM CDT Pt calling back in regards to this. Advised refill still pending * Telephone Encounter - Maegan Castañeda - 07/13/2020 10:14 AM CDT Patient is calling today and has thrown away these medications is needing them refilled and is willing to paycash for these medications as well. documented in this encounter Plan of Treatment Not on file documented as of this encounter Visit Diagnoses Diagnosis Depression, unspecified depression type documented in this encounter Additional Health Concerns Assessment Noted Time PHQ-9 Depression Total Score: 0 04/10/20 3:48 PM CDT documented as of this encounter Care Teams Manager Social Responsibility Relationship Specialty Start Date End Date Heriberto Ramos MD #[address] [address] PCP - General Family Medicine 12/25/18 11/10/20 Heriberto Ramos MD #[address] [address] PCP - General Primary Care 11/24/24 Nayan Copeland, HAND TUBE BENDER, SOCIAL MEDIA STRATEGIST [address] [place] [address] Nurse Practitioner Advanced Practice Nurse 11/24/24 documented as of this encounter
--- OUTSIDE RECORDS SUMMARY | 2025-01-08 12:58 | XMS_ITS | Encounter Summary ---
Author Organization [facility] Address [address] [place] [address] Phone Care Team Providers Care Emulsion Coater Name Role Phone Heriberto Ramos MD Primary Care Provider [phone] Heriberto Ramos MD Primary Care Provider [phone] Nayan Copeland APRN, DEHYDROGENATION CONVERTER HELPER Unavailable + [phone] Reason for Visit * Reason Comments Medication Refill Encounter Details Date Type Department Care Team (Late st Contact Info) Description 04/15/2020 Refill [facility] [address] [place] [place] [address] Heriberto Ramos MD #[address] [address] Medication Refill Social History Tobacco Use Types [...] Telephone Encounter - Rupinder Flores RN - 04/15/2020 9:46 AM CDT Requested Prescriptions Pending Prescriptions Disp Refills FLUoxetine (PROZAC) 40 MG Capsule [Pharmacy Med Name: FLUOXETINE 40MG CAPSULES] 90 Cap 1 Sig: TAKE 1 CAPSULE BY MOUTH ONCE DAILY Not Delegated - Psychiatry: Antidepressants Failed - 04/15/2020 9:37 AM Failed - This refill cannot be delegated Passed - Valid encounter within last 12 months Past Office Visits Recent Outpatient Visits 6 months ago [facility] Heriberto Heart MD 8 months ago Insomnia, unspecified type [facility] Demetrio Domínguez APN, CNP 12 months ago Sprain of right knee, unspecified ligament, initial encounter [facility] Demetrio Domínguez APN, CNP 1 year ago Overweight (BMI 25.0-29.9) [facility] Heriberto Heart MD 1 year ago Insomnia, unspecified type [facility] Heriberto Ramos MD Upcoming Appointments documented in this encounter Plan of Treatment Not on file documented as of this encounter Visit Diagnoses Not on filedocumented in this encounter Additional Health Concerns Assessment Noted Time PHQ-9 Depression Total Score: 0 04/10/20 19 3:48 PM CDT documented as of this encounter Care Teams Emulsion Coater Relationship Specialty Start Date End Date Heriberto Ramos MD #[address] [address] PCP - General Family Medicine 12/25/18 11/10/20 Heriberto Raoms MD #[address] [address] PCP - General Primary Care 11/24/24 Nayan Copeland APRN, DEHYDROGENATION CONVERTER HELPER [address] [place] [address] Nurse Practitioner Advanced Practice Nurse 11/24/24 documented as of this encounter
--- OUTSIDE RECORDS SUMMARY | 2025-01-08 12:58 | XMS_ITS | Encounter Summary ---
Author Organization [facility] Address [address] [place] [address] Phone Care Team Providers Care Migratory Game Bird Biologist Name Role Phone Heriberto Ramos MD Primary Care Provider [phone] Heriberto Ramos MD Primary Care Provider [phone] Nayan Copeland APRN, SIENE MAKER Unavailable + [phone] Reason for Visit * Reason Comments Medication Refill Encounter Details Date Type Department Care Team (Late st Contact Info) Description 08/30/2020 Refill [facility] - [facility] [place] [address] [place] [address] Heriberto Ramos MD #[address] [address] Medication Refill Social History Tobacco Use Types [...] encounter Miscellaneous Notes * Telephone Encounter - Elda Torres RN - 08/31/2020 2:44 PM CDT Medication failed the protocol, provider to review and approve the medication order. Requested Prescriptions Pending Prescriptions Disp Refills clonazePAM (KlonoPIN) 0.5 MG Tablet [Pharmacy Med Name: CLONAZEPAM 0.5 MG TABLET] 30 Tab 0 Sig: TAKE 1 TABLET BY MOUTH TWICE A DAY NEEDED FOR ANXIETY Not Delegated - Psychiatry: Anxiolytics - clonazepam Failed - 08/30/2020 11:05 AM Failed - This refill cannot be delegated Passed - Valid encounter within last 6 months Past Office Visits Recent Outpatient Visits 3 months ago Depression, unspecified depression type [facility] AP[facility], CNP 11 months ago Anxiety [facility] - Heriberto Whitaker MD 1 year ago Insomnia, unspecified type [facility] Demetrio Santos APN, CNP 1 year ago Sprain of right knee, unspecified ligament, initial encounter [facility] - Demetrio Santos APN, CNP 1 year ago Overweight (BMI 25.0-29.9) [facility] - Heriberto Whitaker MD Upcoming Appointments BACK SHOE OPERATOR - Recent and Past Visits Recent Visits Date Type Provider Dept 05/19/20 Office Visit Demetrio Domínguez APN, CNP [facility] 09/21/19 [facility] recent visits within past 460 days [...] documented as of this encounter Care Teams Migratory Game Bird Biologist Relationship Specialty Start Date End Date Heriberto Ramos MD #[address] [address] PCP - General Family Medicine 12/25/18 11/10/20 Heriberto Ramos MD #[address] [address] PCP - General Primary Care 11/24/24 Nayan Copeland, ESTATE MANAGER, SIENE MAKER [address] [place] [address] Nurse Practitioner Advanced Practice Nurse 11/24/24 documented as of this encounter
--- OUTSIDE RECORDS SUMMARY | 2025-01-08 12:58 | XMS_ITS | Encounter Summary ---
Author Organization [facility] Address [address] [place] [address] [place] [address] Phone Care Team Providers Care Glass Cleaning Machine Tender Name Role Phone Heriberto Ramos MD Primary Care Provider [phone] Heriberto Ramos MD Primary Care Provider [phone] Nayan Copeland APRN, VACUUM TESTER CANS Unavailable + [phone] Reason for Visit * Reason Onset Date Comments Medication Refill 08/05/2020 Encounter Details Date Type Department Care Team (Late st Contact Info) Description 08/05/2020 Refill [facility] [address] [place] [address] Heriberto Ramos MD #[address] [address] Medication Refill Social History Tobacco Use Types [...] Telephone Encounter - Elda Torres RN - 08/05/2020 4:40 PM CDT gabapentin (NEURONTIN) 300 MG Capsule 270 Cap 2 02/11/2020 Sig: TAKE 1 CAPSULE BY MOUTH THREE TIMES DAILY Refills at pharmacy Pharmacy notified by surescripts. * Telephone Encounter - Renny Linares - 08/05/2020 9:18 AM CDT Received: []FAX [x]TELEPHONE CALL []MYCHART from: []PHARMACY [x]PATIENT/OTHER regarding medication management. Medication name and dose: Requested Prescriptions Pending Prescriptions Disp Refills ??? gabapentin (NEURONTIN) 300 MG Capsule 270 Cap 2 Quantity: (30 day, 90 day, 3 monthly scripts) 90 Pharmacy preference for this medication: [id number] - [place], [place] - [address] Outcome: [x]Medication pended, routed to surescripts []Medication refused []Informed caller of refills at pharmacy []Additional message to medication management RN []Verbal authorization for written order to pharmacy []Additional message to provider []Verified medication with pharmacy [place] Medication Management documented in this encounter Plan of Treatment Not on file documented as of this encounter Visit Diagnoses Not on filedocumented in this encounter Additional Health Concerns Assessment Noted Time PHQ-9 Depression Total Score: 0 04/10/20 19 3:48 PM CDT documented as of this encounter Care Teams Glass Cleaning Machine Tender Relationship Specialty Start Date End Date Heriberto Ramos MD #[address] [address] PCP - General Family Medicine 12/25/18 11/10/20 Heriberto Ramos MD #[address] [address] PCP - General Primary Care 11/24/24 Nayan Copeland, MERCHANDISE PRESENTATION MANAGER, VACUUM TESTER CANS [address] [place] [address] Nurse Practitioner Advanced Practice Nurse 11/24/24 documented as of this encounter
--- OUTSIDE RECORDS SUMMARY | 2025-01-08 12:58 | XMS_ITS | Encounter Summary ---
Author Organization [facility] Address [address] [place] [address] Phone Care Team Providers Care Chemical Laboratory Technician Name Role Phone Heriberto Ramos MD Primary Care Provider [phone] Heriberto Ramos MD Primary Care Provider [phone] Nayan Copeland DIVISION DIRECTOR, MODELER Unavailable + [phone] Reason for Visit * Reason Comments Medication Refill Encounter Details Date Type Department Care Team (Late st Contact Info) Description 08/16/2020 Refill [facility] - [facility] [address] [place] [address] Heriberto Ramos MD #[address] [address] Medication Refill Social History Tobacco Use Types [...] encounter Miscellaneous Notes * Telephone Encounter - Courtney Alva RN - 08/16/2020 9:23 PM CDT Medication failed the protocol, provider to review and approve the medication order Requested Prescriptions Pending Prescriptions Disp Refills clonazePAM (KlonoPIN) 0.5 MG Tablet [Pharmacy Med Name: CLONAZEPAM 0.5 MG TABLET] 30 Tab 0 Sig: TAKE 1 TABLET BY MOUTH TWICE A DAY NEEDED FOR ANXIETY Not Delegated - Psychiatry: Anxiolytics - clonazepam Failed - 08/16/2020 9:22 PM Failed - This refill cannot be delegated Passed - Valid encounter within last 6 months Past Office Visits Recent Outpatient Visits 2 months ago Depression, unspecified depression type [facility] Demetrio Domínguez APN, CNP 11 months ago Anxiety [facility] Heriberto Ramos MD 1 year ago Insomnia, unspecified type [facility] Demetrio Domínguez APN, CNP 1 year ago Sprain of right knee, unspecified ligament, initial encounter [facility] Demetrio Domínguez APN, CNP 1 year ago Overweight (BMI 25.0-29.9) [facility] Heriberto Ramos MD Upcoming Appointments Future Appointments In 1 week Heriberto Ramos MD [facility], [facility] POWER PLANT ELECTRICIAN - Recent and Past Visits Recent Visits Date Type Provider Dept 05/19/20 Office Visit Demetrio Domínguez APN, CNP [facility] 09/21/19 Office Visit Heriberto Ramos MD [facility] 07/31/19 Office Visit Demetrio Domínguez APN, CNP [facility] Showing recent visits within past 460 days with a meds authorizing provider and meeting all other requirements Future Appointments Date Type Provider Dept 08/25/20 Appointment Heriberto Ramos MD [facility] Showing future appointments within next 90 days [...] documented as of this encounter Care Teams Chemical Laboratory Technician Relationship Specialty Start Date End Date Heriberto Ramos MD #[address] [address] PCP - General Family Medicine 12/25/18 11/10/20 Heriberto Ramos MD #[address] [address] PCP - General Primary Care 11/24/24 Nayan Copeland APRN, MODELER [address] [place] [address] Nurse Practitioner Advanced Practice Nurse 11/24/24 documented as of this encounter
--- OUTSIDE RECORDS SUMMARY | 2025-01-08 12:58 | XMS_ITS | Encounter Summary ---
Author Organization [facility] Address [address] [place] [address] Phone Care Team Providers Care Annual Giving Manager Name Role Phone Heriberto Ramos MD Primary Care Provider [phone] Heriberto Ramos MD Primary Care Provider [phone] Nayan Copeland APRN, PUBLIC SPEAKING COACH Unavailable + [phone] Reason for Visit * Reason Comments Medication Refill Encounter Details Date Type Department Care Team (Late st Contact Info) Description 08/02/2020 Refill [facility] - [facility] [address] [place] [address] Heriberto Ramos MD #[address] [address] Medication Refill Social History Tobacco Use Types [...] encounter Miscellaneous Notes * Telephone Encounter - Alessia Shetty RN - 08/02/2020 1:57 PM CDT Pended to pcp documented in this encounter Plan of Treatment Not on file documented as of this encounter Visit Diagnoses Diagnosis Anxiety Anxiety state, unspecified documented in this encounter Additional Health Concerns Assessment Noted Time PHQ-9 Depression Total Score: 0 04/10/20 19 3:48 PM CDT documented as of this encounter Care Teams Annual Giving Manager Relationship Specialty Start Date End Date Heriberto Ramos MD #[address] [address] PCP - General Family Medicine 12/25/18 11/10/20 Heriberto Ramos MD #[address] [address] PCP - General Primary Care 11/24/24 Nayan Copeland, TURN DOWN MAN, PUBLIC SPEAKING COACH [address] [place] [address] Nurse Practitioner Advanced Practice Nurse 11/24/24 documented as of this encounter
--- OUTSIDE RECORDS SUMMARY | 2025-01-08 12:58 | XMS_ITS | Clinical Summary ---
Author Organization [facility] Address [address] [place] [address] Phone Care Team Providers Care Iron Worker Apprentice Name Role Phone Heriberto Ramos MD Primary Care Provider Nayan Copeland APRN, TOLL SETTLEMENT CLERK Unavailable [phone] Allergies No known active allergies Medications FLUoxetine (PROZAC) 40 MG Capsule TAKE 1 CAPSULE BY MOUTH ONCE DAILY 90 Cap 1 04/15/20 20 Active atorvastatin (LIPITOR) 40 MG TabletIndications: Mixed hyperlipidemia Take 1 Tab by mouth daily. 90 Tab 3 05/19/20 20 Active QUEtiapine (SEROquel) 200 MG Tablet Take 1 Tab by mouth nightly. 30 Tab 2 07/14/20 20 Active QUEtiapine Fumarate (SEROquel) 50 MG TabletIndications: Depression, unspecified depression type Take 1 Tab by mouth nightly. 30 Tab 2 07/14/20 20 Active sildenafil (REVATIO) 20 MG Tablet Take 1 tablet by mouth once daily as needed 30 Tab 10 10/06/20 20 Active Buprenorphine ER 100 MG/0.5ML Solution Prefilled Syringe by Subcutaneous route. Active clonazePAM (KlonoPIN) 0.5 MG TabletIndications: Anxiety Take 1 Tab by mouth 2 times daily. 30 Tab 11/21/20 20 Active Active Problems Problem Noted Date Diagnosed Date Chronic pain of right knee 06/10/2020 Mixed hyperlipidemia 05/19/2020 Erectile dysfunction 09/21/2019 Noncompliance 09/21/2019 Chronic joint pain 04/10/2019 Overweight (BMI 25.0-29.9) 04/10/2019 Chronically on benzodiazepine therapy 01/08/2019 Restless leg syndrome 09/15/2018 Insomnia Depression Anxiety Encounters Date Type Department Care Team Description 12/07/2024 Telephone [facility] [address] [place] [address] Nayan Copeland, MEDICAL SECRETARY, TOLL SETTLEMENT CLERK from Last 3 Months Immunizations Immunization Administration Dates Next Due TB Skin Test 09/15/2018 TDAP Vaccine 11/12/2017 Family History Medical History Relation Name Comments No Known Problems Brother Jakub Diabetes Father Heart Surgery Mother Schizophrenia Mother Relation Name Status Comments Brother Jakub Alive Father Mother Alive Social History Tobacco Use Types Packs/Day Years Used Date Smoking Tobacco: Never Smokeless Tobacco: Never Tobacco Cessation:Counseling Given: Yes Alcohol Use Standard Drinks/Week Comments Not Currently 0 (1 standard drink = 0.6 oz pur e alcohol) EVERY BLUE ACUÑA PHQ-2 Answer Date Recorded PHQ-2 Score 0 07/29/2019 Education Answer Date Recorded What is the highest level of school you have completed or the highest degree you have received? 12th grade 10/14/2020 Sex and Gender Information Value Date Recorded Sex Assigned at Not on file Legal Sex Male 10:39 PM CDT Gender Identity Not on file Sexual Orientation Not on file Last Filed Vital Signs Vital Sign Reading Time Taken Comments Blood Pressure 112/88 10/21/2020 10:18 AM TAFE REGISTRAR Pulse 112 10/21/2020 10:18 AM TAFE REGISTRAR Temperature 36.6 C (97.9 F) 10/21/2020 10:18 AM TAFE REGISTRAR Respiratory Rate 20 10/21/2020 10:1 8 AM TAFE REGISTRAR Oxygen Saturation 97% 10/21/2020 10: 18 AM TAFE REGISTRAR Inhaled Oxygen Concentration - - Weight 102.2 kg (225 lb 6.4 oz) 020 10:18 AM TAFE REGISTRAR Height 172.7 cm (5' 8 ) 10/21/2020 10:1 8 AM TAFE REGISTRAR Body Mass Index 34.27 10/21/2020 10:18 AM TAFE REGISTRAR Plan of Treatment Health Maintenance Due Date Last Done Comments Hepatitis C Virus (HCV) Screening 1986 Hepatitis B Immunization (1 of 3 - 19+ 3-dose series) 2005 Influenza Immunization (#1) 2024 SARS-COV-2 Immunization ( season) 2024 10/06/2021, 09/26/2021, 03/06/2021, Additional history exists Td Immunization Every 10 Years (Adults With 1 Tdap) 11/12/2027 11/12/2017 Respiratory Syncytial Virus (RSV) Immunization (Adult) (1 - 1-dose 75+ series) 2061 Meningococcal Immunization (ACWY) Aged Out No longer eligible based on patient's age to complete this topic Pneumococcal Immunization Combined Aged Out No longer eligible based on patient's age to complete this topic Rotavirus Immunization Aged Out No lo nger eligible based on patient's age to complete this topic Insurance MEDICAID [id number] Advance Directives * Full Code (Latest Code Status on File) Date Activated Date Inactivated Comments 12/09/2017 11:56 AM 04/08/2018 7:06 AM Care Teams Iron Worker Apprentice Relationship Specialty Start Date End Date Heriberto Ramos MD #[address] [address] PCP - General Primary Care 11/24/24 Nayan Copeland APRN, TOLL SETTLEMENT CLERK [address] [place] [address] Nurse Practitioner Advanced Practice Nurse 11/24/24
--- OUTSIDE RECORDS SUMMARY | 2025-01-08 12:58 | XMS_ITS | Encounter Summary ---
Author Organization [facility] Address [address] [place] [address] Phone Care Team Providers Care School Superintendent Name Role Phone Heriberto Ramos MD Primary Care Provider [phone] Heriberto Ramos MD Primary Care Provider [phone] Nayan Copeland APRN, DIRECTOR OF SALES MARKETING Unavailable + [phone] Reason for Visit * Reason Comments Medication Refill Encounter Details Date Type Department Care Team (Late st Contact Info) Description 09/14/2020 [facility]ill [facility] #[address] [place] [address] Heriberto Ramos MD #[address] [address] Medication Refill Social History Tobacco Use Types [...] encounter Miscellaneous Notes * Telephone Encounter - Kenya Torres RN - 09/15/2020 2:34 PM CDT Requested Prescriptions Pending Prescriptions Disp Refills clonazePAM (KlonoPIN) 0.5 MG Tablet [Pharmacy Med Name: CLONAZEPAM 0.5 MG TABLET] 30 Tab 0 Sig: TAKE 1 TABLET BY MOUTH TWICE A DAY NEEDED FOR ANXIETY Not Delegated - Psychiatry: Anxiolytics - clonazepam Failed - 09/14/2020 9:38 PM Failed - This refill cannot be delegated Passed - Valid encounter within last 6 months Past Office Visits Recent Outpatient Visits 3 months ago Depression, unspecified depression type [facility] - Demetrio Santos APN, CNP 12 months ago Anxiety [facility] - Heriberto Whitaker MD 1 year ago Insomnia, unspecified type [facility] Demetrio Santos APN, CNP 1 year ago Sprain of right knee, unspecified ligament, initial encounter [facility] Demetrio Santos APN, CNP 1 year ago Overweight (BMI 25.0-29.9) [facility] - Heriberto Whitaker MD Upcoming Appointments REIMBURSEMENT CONSULTANT - Recent and Past Visits Recent Visits Date Type Provider Dept 05/19/20 Office Visit Demetrio Domínguez APN, CNP [facility] 09/21/19 Office Visit Heriberto Ramos MD [facility] 07/31/19 Office Visit Demetrio Domínguez APN, CNP [facility] Showing recent visits within past 460 [...] Noted Time PHQ-9 Depression Total Score: 0 05/10/20 19 3:48 PM CDT documented as of this encounter Care Teams School Superintendent Relationship Specialty Start Date End Date Heriberto Ramos MD #[address] [address] PCP - General Family Medicine 12/25/18 11/10/20 Heriberto Ramos MD #[address] [address] PCP - General Primary Care 11/24/24 Nayan Copeland APRN, DIRECTOR OF SALES MARKETING [address] [place] [address] Nurse Practitioner Advanced Practice Nurse 11/24/24 documented as of this encounter
== END 2025-01-08 12:52 | disposition home or self-care (01) ==
LOC: ANHIMG 12:52
PROVIDERS: PCP Nurse Practitioner; Visit Provider Plastic Surgery
DX: N64.4 Mastodynia (principal); N62 Hypertrophy of breast
CPT/HCPCS: 76642